=== PATIENT | male | born 1970 | race Caucasian/White ===

== ENCOUNTER 2021-11-02 12:50 | Emergency (ER) | payer BC ==
[2021-11-02] MEDS ORDERED: Famotidine 20 MG/2 ML SDV IVPUSH ONE (12:52)
[2021-11-02] MEDS ORDERED: methylPREDNISolone Sodium Succinate 125 MG/2 ML SDV IVPUSH ONE (12:52)
[2021-11-02] MEDS ORDERED: EPINEPHrine 1 MG/1 ML Amp ONE (13:35)
[2021-11-02] MEDS ORDERED: EPINEPHrine 1 MG/1 ML Amp IM ONE (13:40)
[2021-11-02] MEDS ORDERED: Sodium Chloride 0.9% 1,000 ML IV SCH (13:45)
[2021-11-02] MEDS ORDERED: Acetaminophen 500 MG Tab PO ONE (16:35)
[2021-11-02 18:12] VITALS: BP 154/90; PULSE 96
== END 2021-11-02 17:11 | disposition home or self-care (01) ==
LOC: MW.ED 12:50
DX: T78.2XXA Anaphylactic shock, unspecified, initial encounter (principal); Z91.018 Allergy to other foods
CPT/HCPCS: 96361; 96372; 96374; 96375; 99284; A9270; J0171; J2930; J3490; J7030

== ENCOUNTER 2022-10-24 20:51 | Emergency (ER) | payer BC ==
[2022-10-24] MEDS ORDERED: diphenhydrAMINE 50 MG/ML SDV IVPUSH ONE (21:00)
[2022-10-24] MEDS ORDERED: Famotidine 20 MG/2 ML SDV IVPUSH ONE (21:00)
[2022-10-24] MEDS ORDERED: Sodium Chloride 0.9% 2.5 ML Syringe FLUSH PRN (21:00)
[2022-10-24] MEDS ORDERED: Sodium Chloride 0.9% 10 ML Syringe FLUSH PRN (21:00)
[2022-10-24] MEDS ORDERED: methylPREDNISolone Sodium Succinate 125 MG/2 ML SDV IVPUSH ONE (21:00)
[2022-10-24 23:20] VITALS: BP 145/80; PULSE 98
== END 2022-10-24 23:29 | disposition home or self-care (01) ==
LOC: MW.ED 20:51
DX: T78.40XA Allergy, unspecified, initial encounter (principal); Z91.018 Allergy to other foods
CPT/HCPCS: 96374; 96375; 99285; J1200; J2930; J3490; 99284

== ENCOUNTER 2022-11-22 06:43 | Day surgery (SDC) | payer BC ==
[~2022-11-22 06:43] MED LIST: Lactated Ringers 1,000 ML IV SCH
[2022-11-22] MEDS ORDERED: Dexmedetomidine 200 MCG/2 ML SDV ONE (07:35)
[2022-11-22] MEDS ORDERED: propofoL 50 ML ONE (07:35)
[2022-11-22] MEDS ORDERED: Propofol 200 MG/20 ML SDV ONE ×2 (08:35→08:45)
[2022-11-22 09:47] VITALS: BP 117/81; PULSE 72
== END 2022-11-22 09:50 | disposition home or self-care (01) ==
LOC: MW.SDS 06:43
PROVIDERS: ATTEND Surgery
DX: Z12.11 Encounter for screening for malignant neoplasm of colon (principal); D12.6 Benign neoplasm of colon, unspecified; K63.5 Polyp of colon; I10 Essential (primary) hypertension; E66.3 Overweight; J68.3 Other acute and subacute respiratory conditions due to chemicals, gases, fumes and vapors; Z88.8 Allergy status to other drugs, medicaments and biological substances; Z79.899 Other long term (current) drug therapy; Z91.018 Allergy to other foods; Z87.891 Personal history of nicotine dependence; Z68.42 Body mass index [BMI] 45.0-49.9, adult
CPT/HCPCS: 45380; 45385; J2704; J7120; 00811; J3490

== ENCOUNTER 2023-04-03 17:47 | Emergency (ER) | payer BC ==
[2023-04-03] MEDS: Sodium Chloride 0.9% 1,000 ML IV ONE (18:03)
[2023-04-03] MEDS: Famotidine 20 MG/2 ML SDV IVPUSH STA (18:03)
[2023-04-03] MEDS: diphenhydrAMINE 50 MG/ML SDV IVPUSH STA (18:03)
[2023-04-03] MEDS: Famotidine 20 MG/2 ML SDV ONE (18:04)
[2023-04-03] MEDS: diphenhydrAMINE 50 MG/ML SDV ONE (18:04)
[2023-04-03] MEDS: methylPREDNISolone Sodium Succinate 125 MG/2 ML SDV ONE (18:04)
[2023-04-03] MEDS: methylPREDNISolone Sodium Succinate 125 MG/2 ML SDV IVPUSH STA (18:04)
[2023-04-03 18:24] LABS: BASOPHILS ABSOLUTE AUTO 0.02 K/uL (0.00-0.20); BASOPHILS PERCENT AUTO 0.2 % (0.0-1.0); EOSINOPHILS ABSOLUTE AUTO 0.19 K/uL (0.00-0.45); EOSINOPHILS PERCENT AUTO 1.8 % (0.0-6.0); HEMATOCRIT 46.2 % (42.0-52.0); HEMOGLOBIN 16.5 g/dL (14.0-18.0); IMMATURE GRAN ABSOLUTE AUTO 0.03 K/uL (0.00-0.05); IMMATURE GRAN PERCENT AUTO 0.3 % (0.0-0.4); LYMPHOCYTES ABSOLUTE AUTO 4.71 K/uL (1.00-4.80); MEAN CORPUSCULAR HEMOGLOBIN 30.9 pg (28.0-32.0); MEAN CORPUSCULAR HGB CONC 35.7 g/dL (32.0-36.0); MEAN CORPUSCULAR VOLUME 86.5 fL (83.0-99.0); MONOCYTES PERCENT AUTO 8.4 % (0.0-8.0); NEUTROPHILS ABSOLUTE AUTO 4.86 K/uL (1.80-7.70); NEUTROPHILS PERCENT AUTO 45.3 % (41.0-71.0); PLATELET COUNT,PLT 354 K/uL (150-400); RED BLOOD CELL COUNT 5.34 M/uL (4.52-5.90); WHITE BLOOD CELL COUNT,WBC 10.71 K/uL (3.9-11.3)
[2023-04-03 18:49] LABS: A/G RATIO 0.9 (0.9-1.6); ALBUMIN 3.9 g/dL (3.4-5.0); BILIRUBIN TOTAL 0.4 mg/dL (0.2-1.0); CALCIUM 9.3 mg/dL (8.5-10.1); CREATININE 1.2 mg/dL (0.8-1.3); EST CRCL DRUG DOSING (CG) 83.23 mL/min; POTASSIUM,K 3.6 mmol/L (3.5-5.1); PROTEIN TOTAL,TP 8.4 g/dL (6.4-8.2)
[2023-04-03 22:30] VITALS: BP 131/74; PULSE 95
== END 2023-04-03 22:43 | disposition home or self-care (01) ==
LOC: MW.ED 17:47
DX: L50.0 Allergic urticaria (principal); I10 Essential (primary) hypertension; E66.9 Obesity, unspecified; Z86.16 Personal history of COVID-19; Z79.899 Other long term (current) drug therapy; Z88.8 Allergy status to other drugs, medicaments and biological substances; Z91.018 Allergy to other foods; Z68.41 Body mass index [BMI] 40.0-44.9, adult
CPT/HCPCS: 80053; 83520; 85025; 96361; 96374; 96375; 99283; J1200; J2930; J3490; J7030